=== PATIENT | female | born 1990 | race Caucasian/White ===

== ENCOUNTER → 2021-06-15 | Outpatient (CLI) | payer BC ==
--- NOTE | 2021-06-15 17:53 | CT ---
EXAMINATION TYPE: CT brain wo con DATE OF EXAM: 06/15/2021 COMPARISON: None HISTORY: Head injury in 2020, patient still having headaches. CT DLP: 1068.2 mGycm Automated exposure control for dose reduction was used. Images of the brain obtained without contrast. Ventricles and sulci appear normal. There is no mass effect nor midline shift. There is no sign of in tracranial hemorrhage. Calvarium is intact. There is normal aeration of the mastoid sinuses. IMPRESSION: Negative unenhanced head CT scan.
== END | disposition home or self-care (01) ==
LOC: RADCTMAIN 16:05
PROVIDERS: ATTEND Family Medicine
DX: S09.90XS Unspecified injury of head, sequela (principal); X58.XXXS Exposure to other specified factors, sequela
CPT/HCPCS: 70450